=== PATIENT | male | born 1945 | race Caucasian/White ===

== ENCOUNTER 2020-03-05 22:37 | Emergency (ER) | payer MEDICARE, OTHER ==
--- NOTE | 2020-03-05 22:56 | ER Document Report ---
ED Medical Screen (RME) - General Chief Complaint: Rib Pain Stated Complaint: LEFT RIB PAIN Time Seen by Provider: 03/05/20 22:54 Primary Care Provider: VAUGHN DICKSON [Primary Care Provider] - Follow up as needed Mode of Arrival: Ambulatory Information source: Patient Notes: HPI; 74-year-old male presents to the emergency room complaining of left-sided abdominal pain for the past 2 days. Is worse when laying flat. Denies nausea, vomiting, no urinary symptoms. No medications for symptoms. PE: Alert and oriented x3. Mild distress noted. Lungs: Clear to auscultation without rales, rhonchi, wheezes. Heart: Regular rate rhythm without murmurs, rubs, gallops. No CVA tenderness noted bilaterally I have greeted and performed a rapid initial assessment of this patient. A comprehensive ED assessment and evaluation of the patient, analysis of test results and completion of the medical decision making process will be conducted by additional ED providers. I have specifically instructed the patient or family members with the patient to immediately return to any nursing staff should anything change in the patient's condition or with their chief complaint. TRAVEL OUTSIDE OF THE [place] IN LAST 30 DAYS: No - Related Data Allergies/Adverse Reactions: No Known Allergies Allergy (Verified 03/05/20 22:50) Physical Exam - Vital signs Vitals: Temp Pulse Resp BP Pulse Ox 99.3 F 86 16 137/66 H 99 03/05/20 22:45 03/05/20 22:45 03/05/20 22:45 03/05/20 22:45 03/05/20 22:45 Course - Vital Signs Vital signs: Temp Pulse Resp BP Pulse Ox 99.3 F 86 16 137/66 H 99 03/05/20 22:45 03/05/20 22:45 03/05/20 22:45 03/05/20 22:45 03/05/20 22:45 Doctor's Discharge - Discharge Referrals: VAUGHN DICKSON [Primary Care Provider] - Follow up as needed
[2020-03-06 00:09] LABS: ABSOLUTE EOSINOPHILS # (AUTO) 0.1 10^3/uL (0.0-0.6); ABSOLUTE LYMPHOCYTES (AUTO) 0.9 10^3/uL (0.5-4.7); ABSOLUTE MONOCYTES (AUTO) 0.6 10^3/uL (0.1-1.4); BASOPHILS % (AUTO) 0.7 % (0-2); EOSINOPHILS % (AUTO) 1.7 % (0-6); HEMATOCRIT 37.6 % (37.9-51.0); HEMOGLOBIN 12.5 g/dL (13.5-17.0); MEAN CORPUSCULAR HEMOGLOBIN 30.5 pg (27.0-33.4); MEAN CORPUSCULAR HGB CONC 33.4 g/dL (32.0-36.0); MEAN CORPUSCULAR VOLUME 91 fl (80-97); MONOCYTES % (AUTO) 8.5 % (3-13); PLATELET COUNT 277 10^3/uL (150-450); RED BLOOD COUNT 4.12 10^6/uL (4.35-5.55); RED CELL DISTRIBUTION WIDTH 13.7 % (11.5-14.0); SEGMENTED NEUTROPHILS % (AUTO) 75.1 % (42-78); TOTAL CELLS COUNTED % (AUTO) 100 %; WHITE BLOOD COUNT 6.7 10^3/uL (4.0-10.5)
[2020-03-06 00:32] LABS: ALBUMIN 4.3 g/dL (3.5-5.0); ALKALINE PHOSPHATASE 113 U/L (38-126); ANION GAP 7 (5-19); ASPARTATE AMINO TRANSFERASE 34 U/L (17-59); BILIRUBIN,TOTAL 0.6 mg/dL (0.2-1.3); BLOOD UREA NITROGEN 13 mg/dL (7-20); CALCIUM 9.2 mg/dL (8.4-10.2); CARBON DIOXIDE 30 mmol/L (22-30); CHLORIDE 96 mmol/L (98-107); GLUCOSE 107 mg/dL (75-110); POTASSIUM 4.6 mmol/L (3.6-5.0); TOTAL PROTEIN 7.9 g/dL (6.3-8.2)
--- NOTE | 2020-03-06 01:45 | RADIOLOGY REPORT (SQ) ---
EXAM DESCRIPTION: CT ABDOMEN PELVIS WITH IV CONTRAST COMPLETED DATE/TME: 03/05/2020 22:54 CLINICAL HISTORY: 74 years, Male, abdominal pain COMPARISON: None. TECHNIQUE: Axial CT images of the abdomen and pelvis were obtained after the initiation of IV contrast. Sagittal and coronal reformats were performed. DLP 834 Images stored on PACS. All CT scanners at this facility use dose modulation, iterative reconstruction, and/or weight based dosing when appropriate to reduce radiation dose to as low as reasonably achievable (ALARA). [facility]: Dose Right [facility]: CareDose [facility]: Dose Right [facility]: Teradose 4D [facility]: [employer] LIMITATIONS: None. FINDINGS: Small left pleural effusion. Subsegmental atelectasis along the left lower lobe. The stomach, pancreas, spleen, and adrenal glands are normal. Cholelithiasis with calcification seen throughout the gallbladder wall. Both kidneys enhance normally. No evidence of hydronephrosis. No intraperitoneal free air or fluid. No lymphadenopathy. Atherosclerotic disease of the abdominal aorta without evidence of an aneurysm or dissection. The stomach and small bowel are unremarkable. The appendix is not uniquely identified, however there are no pericecal inflammatory changes. The colon appears unremarkable. No evidence of diverticulitis. The urinary bladder and prostate gland are unremarkable. There are no lytic or blastic bone lesions. IMPRESSION: No acute findings. Small left pleural effusion. Cholelithiasis with a porcelain gallbladder. TECHNICAL DOCUMENTATION: Quality ID # [id number]: Final reports with documentation of one or more dose reduction techniques (e.g., Automated exposure control, adjustment of the mA and/or kV according to patient size, use of iterative reconstruction technique) copyright 2011 [employer]- All Rights Reserved
[2020-03-06 02:52] LABS: APPEARANCE,URINE CLEAR; BILIRUBIN,URINE NEGATIVE (NEGATIVE); COLOR,URINE YELLOW; GLUCOSE, URINE NEGATIVE (NEGATIVE); KETONES,URINE NEGATIVE (NEGATIVE); LEUKOCYTE ESTERASE,URINE NEGATIVE (NEGATIVE); NITRITE,URINE NEGATIVE (NEGATIVE); PROTEIN,URINE NEGATIVE (NEGATIVE); UROBILINOGEN,URINE NEGATIVE mg/dL (<2.0)
[2020-03-06 03:03] LABS: URINE SPECIFIC GRAVITY > 1.060
[2020-03-06] MEDS ORDERED: IBUPROFEN 400 MG TABLET PO ONE (04:48)
--- NOTE | 2020-03-06 05:33 | RADIOLOGY REPORT (SQ) ---
CLINICAL HISTORY: lower anterior rib pain h/o lung ca COMPARISON: None. TECHNIQUE: XR CHEST 2 VIEWS 03/06/2020 4:47 AM CDT FINDINGS: Cardiac silhouette is normal in size. There is left basilar platelike atelectasis. There is no pleural effusion. There is no pneumothorax. There are no acute osseous findings. IMPRESSION: No definite pneumonia.
--- NOTE | 2020-03-06 07:21 | ER Document Report ---
ED General - General Mode of Arrival: Ambulatory TRAVEL OUTSIDE OF THE [place] IN LAST 30 DAYS: No - Related Data Home Medications: Lipitor. Plavix. Lisinopril. Toprol. Norvasc. Aspirin. Iron. Potassium. Magnesium. Nitroglycerin <ANNI WATTS - Last Filed: 03/06/20 06:38> <LOLI MARQUIS - Last Filed: 03/06/20 13:31> - General Chief Complaint: Rib Pain Stated Complaint: LEFT RIB PAIN Time Seen by Provider: 03/05/20 22:54 Primary Care Provider: VAUGHN DICKSON [Primary Care Provider] - Follow up as needed - HPI Notes: 74-year-old male history of distant lung cancer 10 years ago with right lobectomy, hypertension, hyperlipidemia, smoking, CAD presents with left i nferior chest pain aggravated by taking a deep breath that he feels at the bottom of his left ribs. Pain is worse when he lays flat. Patient denies any exertional chest pain, DVT/PE/hypercoagulability history, recent travel/trauma/surgery/immobilization, lower extremity edema, trauma, abdominal pain, GI symptoms, back pain, cough, shortness of breath (ANNI WATTS) - Related Data Allergies/Adverse Reactions: No Known Allergies Allergy (Verified 03/05/20 22:50) Past Medical History - General Information source: Patient - Social History Smoking Status: Former Smoker Chew tobacco use (# tins/day): No Frequency of alcohol use: Rare Drug Abuse: None <ANNI WATTS - Last Filed: 03/06/20 06:38> - Social History Family History: None <LOLI MARQUIS - Last Filed: 03/06/20 13:31> Review of Systems <ANNI WATTS - Last Filed: 03/06/20 06:38> - Review of Systems Notes: REVIEW OF SYSTEMS: CONSTITUTIONAL : Denies fever, chills, or sweats. EENT: Denies recent cold/sinus symptoms, denies throat pain CARDIOVASCULAR: + chest pain, [place] RESPIRATORY: Denies cough, denies shortness of breath. GASTROINTESTINAL: Denies abdominal pain, nausea/vomiting. GENITOURINARY: Denies difficulty urinating, painful urination. MUSCULOSKELETAL: Denies neck pain, back pain. SKIN: Denies rash or skin lesions. HEMATOLOGIC : Denies easy bruising or bleeding. LYMPHATIC: Denies swollen, enlarged glands. NEUROLOGICAL: Denies headache, denies change in gait. PSYCHIATRIC: Denies anxiety or stress or depression. (ANNI WATTS) Physical Exam <ANNI WATTS - Last Filed: 03/06/20 06:38> - Vital signs Vitals: Temp Pulse Resp BP Pulse Ox 99.3 F 86 16 137/66 H 99 03/05/20 22:45 03/05/20 22:45 03/05/20 22:45 03/05/20 22:45 03/05/20 22:45 - Notes Notes: PHYSICAL EXAMINATION: GENERAL: Well-appearing, well-nourished and in no acute distress. HEAD: Atraumatic, normocephalic. EYES: Pupils equal round and appropriate constriction, sclera anicteric, conjunctiva are normal. ENT: nares patent, moist mucous membranes. NECK: Normal range of motion, supple without lymphadenopathy LUNGS: Breath sounds clear to auscultation bilaterally and equal. No wheezes rales or rhonchi. HEART: Regular rate and rhythm without murmurs ABDOMEN: Soft, nontender, no guarding, no masses, no CVAT EXTREMITIES: Normal range of motion, no pitting or edema. No cyanosis. NEUROLOGICAL: Awake, alert, conversing appropriately, moves all extremities spontaneously. PSYCH: Normal mood, normal affect. SKIN: Warm, Dry, normal turgor, no rashes or lesions noted. (ANNI WATTS) Course - Laboratory Result Diagrams: 03/05/20 23:47 03/05/20 23:47 <ANNI WATTS - Last Filed: 03/06/20 06:38> - Laboratory Result Diagrams: 03/05/20 23:47 03/05/20 23:47 <LOLI MARQUIS - Last Filed: 03/06/20 13:31> - Re-evaluation Re-evalutation: 03/06/20 07:37 Patient with pleuritic chest pain, very focal to underneath anterior left lower ribs. Very low suspicion for ACS, ruled out with EKG and troponin. Patient's d-dimer was mildly positive and given that patient had CT abdomen pelvis in triage patient not able to get IV contrast for CTA chest so patient is pending VQ scan. Patient turned over to Dr. Marquis pending VQ scan. (ANNI WATTS) 03/06/20 13:29 VQ scan was within normal limits not showing any evidence of pulmonary embolus. (LOLI MARQUIS) - Vital Signs Vital signs: Temp Pulse Resp BP Pulse Ox 99.3 F 68 19 120/71 96 03/05/20 22:50 03/06/20 07:08 03/06/20 11:01 03/06/20 11:01 03/06/20 11:01 - Laboratory Laboratory results interpreted by me: 03/05/20 03/05/20 03/06/20 23:47 23:47 04:00 RBC 4.12 L Hgb 12.5 L Hct 37.6 L D-Dimer 0.87 H Sodium 132.8 L Chloride 96 L - EKG Interpretation by Me Additional EKG results interpreted by me: 03/06/20 07:39 Heart rate 72, sinus rhythm, no significant ST elevations or depressions, no significant T wave abnormalities (ANNI WATTS) Discharge <ANNI WATTS - Last Filed: 03/06/20 06:38> <LOLI MARQUIS - Last Filed: 03/06/20 13:31> - Discharge Clinical Impression: Chest wall pain Condition: Stable Disposition: HOME, SELF-CARE Instructions: Chest Wall Pain ([facility]) Additional Instructions: Chest Wall Pain Your chest pain has been diagnosed as coming from the chest wall. This is often caused by straining the muscles or joints in the chest during physical activity, direct trauma, coughing, or vigorous vomiting. Persons with arthritis are especially prone to this type of pain, due to inflammation of the cartilage joints near the breast bone. Occasionally, no cause can be found. Rest from strenuous physical activity. This kind of chest pain is usually made worse by movement of the chest. Depending on the symptoms, we may prescribe medicine for pain, muscle relaxation, and antiinflammatory effects. If the pain is new, and seems to be due to muscle strain, cold packs can help. Otherwise, apply gentle warmth to the painful area for 15 minutes every hour or two. You should contact the doctor immediately if things change. Further evaluat ion is needed if you develop a fever or cough, if the nature of the pain changes, or if you become short of breath. No new prescriptions Follow-up with your primary care provider. Referrals: [facility],NO [Primary Care Provider] - Follow up as needed
--- NOTE | 2020-03-06 07:35 | EKG REPORT ---
SEVERITY:- NORMAL ECG - SINUS RHYTHM : Confirmed by: Aamir Zavala MD 06-Mar-2020 07:34:16
--- NOTE | 2020-03-06 09:51 | RADIOLOGY REPORT (SQ) ---
EXAM DESCRIPTION: NM LUNG PERFUSION SCAN IMAGES COMPLETED DATE/TIME: 03/06/2020 9:30 am REASON FOR STUDY: pleuritic left cp positive dimer COMPARISON: 03/06/2020 RADIONUCLIDE AND DOSE: 5.16 millicuries TC-99m MAA The route of agent administration: Intravenous TECHNIQUE: Eight views of the lungs acquired following injection of MAA. LIMITATIONS: None. FINDINGS: PERFUSION: Perfusion images with normal homogenous activity and no wedge-shaped or segment al defects. OTHER: No other significant finding. IMPRESSION: NORMAL PERFUSION LUNG SCAN. TECHNICAL DOCUMENTATION: JOB ID: [id number] 2010 [employer]- All Rights Reserved Reading location - IP/workstation name: [email or web address]
[2020-03-06 12:15] VITALS: BP 120/71
== END 2020-03-06 13:59 | disposition home or self-care (01) ==
LOC: ER 22:37
DX: R07.89 Other chest pain (principal); J90 Pleural effusion, not elsewhere classified; K82.8 Other specified diseases of gallbladder; R07.81 Pleurodynia; R10.9 Unspecified abdominal pain; Z85.118 Personal history of other malignant neoplasm of bronchus and lung; Z90.2 Acquired absence of lung [part of]; Z87.891 Personal history of nicotine dependence; I25.10 Atherosclerotic heart disease of native coronary artery without angina pectoris; I10 Essential (primary) hypertension; E78.5 Hyperlipidemia, unspecified; Z79.899 Other long term (current) drug therapy; Z79.82 Long term (current) use of aspirin; Z79.02 Long term (current) use of antithrombotics/antiplatelets
CPT/HCPCS: 93005; 99285; 36415; 83690; 85025; 80053; 81001; 84484; 85379; 71046; 78580; 74177; 93010; A9540; A9270; Q9969; J3490